=== PATIENT | female | born 1985 | race Caucasian/White ===

== ENCOUNTER 2020-06-28 03:11 | Day surgery (SDC) | payer OTHER, SELFPAY ==
[2020-06-28] VITALS (14 sets, daily range): BP systolic 91–137; BP diastolic 58–85; PULSE 79–100; RESP 16–18; TEMP 35.8–37.4; O2SAT 98–100; BMI 31.1; BMI 31.2
--- NOTE | 2020-06-28 03:36 | EX.ED.DYSGE1 ---
HPI History of Present Illness Chief Complaint: Abd Pain Narrative Narrative: Patient presents with right lower abdominal pain. She stated it started several hours ago. She describes an aching throbbing pain over the appendix site. She has had 6 episodes of emesis. She is 6 weeks by dates and testing. 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 She is a G8, P6 Ab1. She did have a miscarriage at 10 weeks 6 months ago. Denies any vaginal bleeding. No previous abdominal surgeries. No home treatment. Current severity is moderate. PFSH PFSH Home Medications NK 06/28/20 [History Last Taken Unknown] Allergy/AdvReac Type Severity Reaction Status Date / Time No Known Allergies Allergy Verified 06/28/20 03:18 Social History Smoking Status: Never smoker ROS ROS ED ROS Narrative ROS General: Denies fever, chills, sweats Eyes: Denies visual changes, blurred vision, double vision ENT: Denies ear pain, rhinorrhea, sore throat Cardiovascular: Denies chest pain, palpitations, heart racing Respiratory: Denies dyspnea, cough, sputum, dyspnea on exertion, orthopnea,PND GI: See HPI : Denies dysuria, hematuria, frequency Musculoskeletal: Denies myalgias, arthralgias, neck pain, back pain Skin: Denies rash, abscess, abrasions Neuro: Denies headache, weakness, paresthesia Psych: Denies depression, anxiety Endo: Denies polyuria, polydipsia, polyphagia Heme: Denies easy bruising, easy bleeding, lymphadenopathy Allergy: Denies hives, swelling EXAM Physical Exam Narrative Exam Narrative: Vital signs reviewed General: Well-nourished well-developed Head: Normocephalic atraumatic Eyes: Pupils equal round and reactive to light extraocular movements intact ENT: TMs clear no hemotympanum no trauma Neck: Nontender full range of motion Cardiovascular: Regular rate rhythm no murmurs normal S1-S2 Respiratory: No distress clear to auscultation bilaterally chest nontender Abdomen: Soft tender at McBurney's point. No tenderness deep in the pelvis no guarding or rebound nondistended normal bowel sounds no masses Back: Nontender no CVA tenderness Extremities: Nontender active range of motion ?4 extremities no trauma Skin: Normal color no trauma Neuro alert oriented cranial nerves II through XII intact normal strength sensation reflexes Const Vital Signs: 06/28/20 03:12 06/28/20 04:16 06/28/20 04:17 Temperature 99.4 F H 98.8 F Temperature Source Oral Oral Pulse Rate 98 90 90 Respiratory Rate 16 18 18 Blood Pressure 137/85 H 130/84 H 130/84 H Blood Pressure Mean 102 99 99 Pulse Ox 98 98 98 Oxygen Delivery Method Room Air Room Air Room Air MDM MDM MDM Narrative Medical decision making narrative: IV established. Did not want any pain or nausea medicine initially. Lab work obtained. Given IV fluids. Also given a dose of morphine and Zofran later in her stay as her pain got worse and nausea got worse. Lab work shows a leukocytosis greater than 17,000. BMP unremarkable. hCG is just over 1300. Lipase negative. LFTs show ALT of 58. On reevaluation she continues to be tender right over the appendix. Have a low suspicion for ectopic . Discussed with on-call surgeon Dr. Puente who would like to come in and see the patient. Patient given a dose of Zosyn IV antibiotic. Will hold off on imaging at this time due to her . I do not think she needs an emergent pelvic ultrasound as well. Lab Data Labs: Laboratory Results - last 24 hr 06/28/20 06/28/20 06/28/20 03:20 03:20 03:20 WBC 17.8 H RBC 4.54 Hgb 13.2 Hct 38.9 MCV 85.7 MCH 29.1 MCHC 33.9 RDW Std Deviation 39.1 RDW Coeff of Tricia 12.6 Plt Count 180 MPV 8.4 Immature Gran % (Auto) 0.500 Neut % (Auto) 87.6 H Lymph % (Auto) 7.2 L [place] % (Auto) 3.8 Eos % (Auto) 0.6 Baso % (Auto) 0.3 Absolute Neuts (auto) 15.6 H Absolute Lymphs (auto) 1.28 Nucleated RBC % 0 Sodium Potassium Chloride Carbon Dioxide Anion Gap BUN Creatinine Estim Creat Clear Calc Est GFR (MDRD) Af Amer Est GFR (MDRD) Non-Af BUN/Creatinine Ratio Glucose Calcium Total Bilirubin 0.90 Direct Bilirubin 0.24 AST 25 ALT 58 H Alkaline Phosphatase 41 L Total Protein 7.7 Albumin 3.9 Globulin 3.8 Lipase HCG, Quant 1372 H 06/28/20 03:20 WBC RBC Hgb Hct MCV MCH MCHC RDW Std Deviation RDW Coeff of Tricia Plt Count MPV Immature Gran % (Auto) Neut % (Auto) Lymph % (Auto) [place] % (Auto) Eos % (Auto) Baso % (Auto) Absolute Neuts (auto) Absolute Lymphs (auto) Nucleated RBC % Sodium 134 L Potassium 3.4 L Chloride 99 Carbon Dioxide 27.0 Anion Gap 8 BUN 13 Creatinine 0.68 Estim Creat Clear Calc 92.20 Est GFR (MDRD) Af Amer 127 Est GFR (MDRD) Non-Af 105 BUN/Creatinine Ratio 19.1 Glucose 147 H Calcium 8.6 Total Bilirubin Direct Bilirubin AST ALT Alkaline Phosphatase Total Protein Albumin Globulin Lipase 96 HCG, Quant Discharge Plan Triage Chief Complaint: Abd Pain ED Provider: Sammy Sebastian Dx/Rx/DC Orders Clinical Impression: Acute appendicitis Prescriptions: No Action NK RF: 0 Primary Care Provider: Tal Hassan Referrals: Tal Hassan DO [Primary Care Provider] -
[2020-06-28 03:42] LABS: Absolute Lymphocyte Count 1.28 X10^3/uL (0.83-4.51); Absolute Neutrophil Count 15.6 X10^3/uL (2.0-7.7); Basophil# 0.05 X10^3/uL; Basophil% 0.3 % (0-1); Eosinophils% 0.6 % (0-5); Hematocrit 38.9 % (37-47); Hemoglobin 13.2 g/dL (12.0-15.0); Lymphocyte # 1.28 X10^3/ul (0.83-4.51); Lymphocyte % 7.2 % (19-41); Mean Corp Hgb Conc 33.9 g/dL (32-36); Mean Corpuscular Hgb 29.1 pg (27.0-32.0); Mean Corpuscular Volume 85.7 fL (81-99); Mean Platelet Vol. 8.4 fl (6.2-12.0); Monocyte# 0.67 X10^3/uL; Monocyte% 3.8 % (0-10); NRBC Flagged by Analyzer 0 % (0-5); Neutrophil # 15.59 X10^3/uL (2.7-7.7); Neutrophil % 87.6 % (47-70); Platelet Count 180 K/mm3 (150-450); RBC Distribution Width CV 12.6 % (11.6-14.6); RBC Distribution Width SD 39.1 fl (35.1-43.9); Red Blood Count 4.54 M/mm3 (4.2-5.4); White Blood Count 17.8 K/mm3 (4.4-11.0)
[2020-06-28 03:52] LABS: Anion Gap 8 (5-15); BUN 13 mg/dL (7-18); BUN/Creat Ratio 19.1 RATIO (10-20); Calcium,Total 8.6 mg/dL (8.5-10.1); Chloride 99 mmol/L (98-107); Creatinine, Serum 0.68 mg/dL (0.55-1.02); EST Glomerular Filtration Rate 105 mL/min (>60); Est Glom Filt Rate - Afr Amer 127 mL/min (>60); Glucose 147 mg/dL (74-106); Lipase 96 U/L (73-393); Potassium 3.4 mmol/L (3.5-5.1); Sodium Level 134 mmol/L (136-145)
[2020-06-28 04:06] LABS: AST(SGOT) 25 U/L (15-37); Alanine Aminotransfer ALT/SGPT 58 U/L (13-56); Albumin, Serum 3.9 g/dL (3.2-5.0); Alkaline Phosphatase 41 U/L (45-117); Bilirubin, Direct 0.24 mg/dL (0.00-0.30); Globulin 3.8 g/dL (2.2-4.2); Protein, Total 7.7 g/dL (6.4-8.2)
[2020-06-28] MEDS: Ondansetron 4 MG/2 ML Vial IV (04:13)
[2020-06-28] MEDS: 0.9% Normal Saline 1,000 ML 1000 ML IV (04:13)
[2020-06-28 04:15] LABS: hCG Titer Quant., Serum 1372 mIU/mL (1-3)
[2020-06-28 04:22] LABS: Color, Urine Yellow (Yellow); Glucose, Dipstick Normal (Normal); Ketone-Dipstick 5 mg/dl (Negative); Leukocyte Esterase-Dipstick 25 /ul (Negative); Mucous, Urine 0 SEEN /hpf (<or=2+); Nitrite-Dipstick Negative (Negative); Occult Blood-Urine Negative /ul (Negative); Protein-Dipstick Negative (Negative); Red Blood Cells-Urine 0 SEEN /hpf (0-5); Specific Gravity, Urine 1.015 (1.002-1.030); Urine Bilirubin Dipstick Negative (Negative); Urine Clarity Turbid (Clear); Urine Urobilinogen Normal (Normal)
[2020-06-28 04:30] LABS: Bacteria 4+ /hpf (None Seen); Squamous Epithelial Cells - UA 0-5 SEEN /hpf (5-10); White Blood Cells 0-5 SEEN /hpf (0-5)
[2020-06-28] MEDS: Morphine 2 MG/ML Syringe IV (04:47)
--- NOTE | 2020-06-28 06:08 | EX.PCM.CON.S ---
Assessment & Plan Assessment/Plan (1) Acute appendicitis: QUALIFIERS: Acute appendicitis type: with localized peritonitis Appendicitis gangrene presence: unspecified whether gangrene present Appendicitis perforation presence: unspecified whether perforation present Appendicitis abscess presence: unspecified whether abscess present Qualified Code(s): K35.30 - Acute appendicitis with localized peritonitis, without perforation or gangrene PLAN: Plan will be to perform a laparoscopic appendectomy on the patient. Given that she is 5 weeks and hoping this is not going to be too difficult and believe that doing this laparoscopically is more than likely quite feasible. However she does understand that I might have to make an open incision to do this. Normal risk benefits of bleeding infection blood clots heart attacks pneumonia and strokes have been reviewed with the patient also understands it there is a chance even if she does not have a ruptured appendicitis that she may lose her fetus. All questions asked were answered. was present. She is willing to proceed. HPI Consult Data Date of Consult: 06/28/20 HPI Narrative HPI Narrative: ANANYA BARBOZA, is a 34 F who presents with right lower abdominal pain.? She stated it started several hours ago.? She describes an aching throbbing pain over the appendix site.? She has had 6 episodes of emesis.? She is 6 weeks by dates and testing.? 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 She is a G8, P6 Ab1.? She did have a miscarriage at 10 weeks 6 months ago.? Denies any vaginal bleeding.? No previous abdominal surgeries.? No home treatment.? Current severity is moderate. PFSH Home Medications NK 06/28/20 [History Last Taken Unknown] Allergy/AdvReac Type Severity Reaction Status Date / Time No Known Allergies Allergy Verified 06/28/20 03:18 Social History Smoking Status: Never smoker ROS Constitutional Constitutional: Reports anorexia Cardiovascular Cardiovascular: Reports systems reviewed and no addt'l complaints, except as documented Respiratory/Chest Respiratory/Chest: Reports systems reviewed and no addt'l complaints, except as documented Gastrointestinal Gastrointestinal: Reports systems reviewed and no addt'l complaints, except as documented and abdominal pain Physical Exam Const alert, oriented x3 and no apparent distress General Appearance: cooperative Eyes PERRL and EOMs intact bilaterally Resp normal respiratory effort Auscultation: Negative for rales, rhonchi or wheezes Cardio Rate: regular rate Rhythm: regular rhythm GI soft to palpation Palpation: tender RLQ (At McBurney's point) Extremity General Extremity: Negative for edema Lab / Micro Data Result Diagrams: 06/28/20 03:20 06/28/20 03:20 Labs: Laboratory Results - last 24 hr 06/28/20 06/28/20 06/28/20 03:20 03:20 03:20 WBC 17.8 H RBC 4.54 Hgb 13.2 Hct 38.9 MCV 85.7 MCH 29.1 MCHC 33.9 RDW Std Deviation 39.1 RDW Coeff of Tricia 12.6 Plt Count 180 MPV 8.4 Immature Gran % (Auto) 0.500 Neut % (Auto) 87.6 H Lymph % (Auto) 7.2 L [place] % (Auto) 3.8 Eos % (Auto) 0.6 Baso % (Auto) 0.3 Absolute Neuts (auto) 15.6 H Absolute Lymphs (auto) 1.28 Nucleated RBC % 0 Sodium Potassium Chloride Carbon Dioxide Anion Gap BUN Creatinine Estim Creat Clear Calc Est GFR (MDRD) Af Amer Est GFR (MDRD) Non-Af BUN/Creatinine Ratio Glucose Calcium Total Bilirubin 0.90 Direct Bilirubin 0.24 AST 25 ALT 58 H Alkaline Phosphatase 41 L Total Protein 7.7 Albumin 3.9 Globulin 3.8 Lipase HCG, Quant 1372 H Urine Color Urine Clarity Urine pH Ur Specific [place] Urine Protein Urine Glucose (UA) Urine Ketones Urine Occult Blood Urine Nitrite Urine Bilirubin Urine Urobilinogen Ur Leukocyte Esterase Urine RBC Urine WBC Ur Squamous Epith Cells Urine Bacteria Urine Mucus 06/28/20 06/28/20 03:20 04:18 WBC RBC Hgb Hct MCV MCH MCHC RDW Std Deviation RDW Coeff of Tricia Plt Count MPV Immature Gran % (Auto) Neut % (Auto) Lymph % (Auto) [place] % (Auto) Eos % (Auto) Baso % (Auto) Absolute Neuts (auto) Absolute Lymphs (auto) Nucleated RBC % Sodium 134 L Potassium 3.4 L Chloride 99 Carbon Dioxide 27.0 Anion Gap 8 BUN 13 Creatinine 0.68 Estim Creat Clear Calc 92.20 Est GFR (MDRD) Af Amer 127 Est GFR (MDRD) Non-Af 105 BUN/Creatinine Ratio 19.1 Glucose 147 H Calcium 8.6 Total Bilirubin Direct Bilirubin AST ALT Alkaline Phosphatase Total Protein Albumin Globulin Lipase 96 HCG, Quant Urine Color Yellow Urine Clarity Turbid Urine pH 8.0 Ur Specific [place] 1.015 Urine Protein Negative Urine Glucose (UA) Normal Urine Ketones 5 H Urine Occult Blood Negative Urine Nitrite Negative Urine Bilirubin Negative Urine Urobilinogen Normal Ur Leukocyte Esterase 25 H Urine RBC 0 SEEN Urine WBC 0-5 SEEN Ur Squamous Epith Cells 0-5 SEEN Urine Bacteria 4+ Urine Mucus 0 SEEN
--- NOTE | 2020-06-28 06:36 | NURSING ---
SURGERY DR BULL APPENDICITIS
--- NOTE | 2020-06-28 07:30 | APP_PTH ---
PATIENT: ANANYA BARBOZA LOC: [facility] [place] U#:[id number] AGE/SX: 34/F ROOM: RE06/28/[address]: Dr. Major Puente MD : 1985 BED: DIS: 06/28/2020 SPEC #: [id number] RECD: 06/29/20 07:10 STATUS: ZEESHAN REQ #: [id number] KAILEY: 06/28/20 07:[address]: Major Puente DEPT: SURGICAL PATHOLOGY RECD BY: Tammy Crews ENTERED: 06/29/20 08:50 SP TYPE: APPENDIX OTHR DR: Dr. Tal Hassan, Tissues: Appendix, NOS Procedures: Surgery Specimen Level III HEADER OPERATION: Laparoscopic appendectomy PRE-OP DIAGNOSIS: Acute appendicitis TISSUE SUBMITTED: Appendix MICROSCOPIC DIAGNOSIS Appendix, appendectomy: Acute appendicitis and periappendicitis. SIDNEY:lauren 06/30/2020 MICROSCOPIC DESCRIPTION Slides are reviewed. GROSS DESCRIPTION Received in fixative is one container labeled with the patient's name and designated appendix. The specimen consists of an C-shaped appendix measuring 8.5 cm in length and up to 1 cm in diameter. The attached periappendiceal adipose tissue measures up to 2 cm in width. The serosa is congested. No obvious perforation is identified. The lumen is filled with hemorrhagic material. The mucosa is congested. No fecalith is identified. [employer] Quality Control Technician sections are submitted in one cassette. / SJ:lauren 06/29/20 TC:2 CPT: 54607
--- NOTE | 2020-06-28 07:38 | OP.PCM_ITS ---
Problems Associated Problem List Diagnoses (1) Acute appendicitis: Report of Operation Date of Procedure: 06/28/20 Pre-Operative Diagnosis: Acute appendicitis Post-Operative Diagnosis: Same Surgery/Procedure Performed:: Laparoscopic appendectomy Surgeon: Major Puente biodiesel process control technician: None (Bola Herr) Type of Anesthesia: General Anesthesiologist: Franck Jones Specimen's removed: Appendix Estimated Blood Loss (mL): < 25 cc Description of Procedure: Patient was brought into the operating room. Placed in the supine position. Under excellent general endotracheal ovation the abdomen was sterilely prepped and draped in the usual fashion. Local was injected supraumbilically dissection was carried down to the fascia the fascia grasped with a [place]. Another Jose was used to grab the fascia I opened the fascia in an open technique I gained access to the intra-abdominal cavity. Melara trocar was placed inside the abdomen it was secured with the balloon. Patient was placed in the headdown and rotated to the left. Fetus was very sm all uterus was barely visible. Suprapubic #5 trochars placed a left lower quadrant #5 trocar was placed. Both of these under direct visualization without injury to underlying structures. Patient was noted to have acute appendicitis. I used the Enseal came down on the mesoappendix with this had good admit stasis. I transected the base of the appendix with a 45 linear cutter. Placed the specimen in a specimen bag and delivered through the umbilical port without difficulty. Irrigated the right lower quadrant good amount stasis was noted. Ran the small bowel no Meckel's diverticulum was identified. Retrieved all the irrigant from the pelvis and the right upper quadrant. Albarran stasis was noted. The trochars were removed under direct visualization good with stasis was noted. Fascia the umbilical port was closed with a [id number] stitch of 0 Vicryl. Skin incisions were closed with subcuticular stitches of 4-0 Monocryl. Steri-Strips were applied. Sterile dressings were applied. Patient tolerated the procedure well. Admit VTE Documentation VTE Mechan Device Prophylaxis: SCD's Reason prophylaxis not ordered:: Treatment Not Indicated
[2020-06-28] MEDS: Bupivacaine Mpf 0.5% 30 ML VIAL (08:03)
--- NOTE | 2020-06-28 08:46 | EX.PCM.DISCH ---
Discharge Instructions Procedure Appendectomy Diet Discharge Diet: Light diet - advance as tolerated (if you have questions about your diet instructions, please talk to you doctor.) Activity Discharge Activity: May Not Drive (for 3-5 days or while taking narcotic pain meds.) May shower in (days): 1 Dressing / Incision Call your doctor if your incision/area has: Continuous Slow Oozing, Sudden Increased Bleeding, Increased Pain/ Swelling, Increased Redness and Foul Smelling Discharge Call your doctor if you observe: Fever of 101 or Higher Suture Line Care: Avoid Pulling/Pushing and Avoid Pinching/Bending Additional Dressing/Incision Instructions:: Keep dressing clean and dry. Change or remove dressing in 2 days. Leave steri strips for 1 week. May protect with a gauze bandaid. Follow Up Care Please Follow Up With: Elisabet Meek PA-C When: Call office to schedule an appointment to be seen in 1 week. Test Results: Test results from this visit will be discussed in further detail at your follow-up appointment, if applicable. Discharge Plan Admission Attending Provider: Major Puente Primary Care Provider: Tal Hassan Discharge Orders/Prescriptions Prescriptions: New oxycodone-acetaminophen [Percocet] 5-325 mg tablet 1 tab PO Q4H PRN (Reason: pain) 5 Days Qty: 20 RF: 0 Referrals / Follow Up: Tal Hassan DO [Primary Care Provider] -
[2020-06-28] MEDS: 0.9% Normal Saline 1,000 ML 70 ML IV (10:39)
== END 2020-06-28 14:12 | disposition home or self-care (01) ==
LOC: ED 03:49 → SDC 06:14 → MS3 09:43 → ED 14:55 → SDC 14:55 → MS3 14:55
PROVIDERS: Emergency Provider Emergency Medicine; PCP Family Medicine; Visit Provider Surgery
PROC: 0DTJ4ZZ Resection of Appendix, Percutaneous Endoscopic Approach (ICD-10-PCS; CPT 44970; principal; 2020-06-28 07:30)
DX: O99.611 Diseases of the digestive system complicating pregnancy, first trimester (principal); K35.31 Acute appendicitis with localized peritonitis and gangrene, without perforation; Z3A.01 Less than 8 weeks gestation of pregnancy
CPT/HCPCS: 00840; 44970; 80048; 80076; 81001; 83690; 84702; 85025; 87086; 87088; 88304; 99251; 99285; J7030; A4216; C1760; G0463; J2405